=== PATIENT | male | born 1975 | race Caucasian/White ===

== ENCOUNTER → 2016-05-26 | Outpatient (CLI) | payer MEDICAID, OTHER ==
[~2016-05-26] MED LIST: IOHEXOL 350 MG/ML 100ML IJ ONE
[2016-05-26 12:15] VITALS: BP 143/94
[2016-05-26 12:35] VITALS: BP 143/98
== END | disposition home or self-care (01) ==
LOC: Rad HDHVI 12:01
PROVIDERS: ATTEND Internal Medicine Cardiovascular Disease
DX: I10 Essential (primary) hypertension (principal); J18.8 Other pneumonia, unspecified organism; M47.899 Other spondylosis, site unspecified
CPT/HCPCS: 71260; G0463; Q9967; 96374